=== PATIENT | female | born 1965 | race Caucasian/White ===

== ENCOUNTER → 2023-12-30 12:07 | Outpatient (REF) | payer BC, SELFPAY ==
[2023-12-30 13:33] LABS: Hematocrit 43.5 % (37.0-47.0); Hemoglobin 14.2 g/dL (12.0-16.0); Mean Corp Hgb Conc. 32.6 g/dL (33.0-37.0); Mean Corpuscular Hgb 29.4 pg (27.0-31.0); Mean Corpuscular Volume 90.1 fL (81.0-99.0); Mean Platelet Volume 9.7 fL (7.4-10.4); Platelet Count 301 10^3/uL (130-400); Red Blood Cell Count 4.83 10^6/uL (4.20-5.40); Red Cell Dist. Width 14.3 % (11.5-14.5); White Blood Cell Count 7.1 10^3/uL (4.8-10.8)
[2023-12-30 15:02] LABS: ALT (SGPT) 16 U/L (0-35); AST (SGOT) 24 U/L (14-36); Albumin 4.6 g/dl (3.5-5.0); Alkaline Phosphatase 115 U/L (38-126); Blood Urea Nitrogen 16 mg/dl (7-17); Calcium 9.2 mg/dl (8.4-10.2); Carbon Dioxide 31 mmol/L (22-30); Chloride 99 mmol/L (98-107); Glucose 93 mg/dl (70-99); HDL Cholesterol 83 mg/dl; LDL Cholesterol, Calculated 141 mg/dl; Potassium 4.2 mmol/L (3.5-5.1); Sodium 142 mmol/L (135-145); Total Bilirubin 0.7 mg/dl (0.2-1.3); Total Cholesterol 241 mg/dl (50-199); Total Protein 7.6 g/dl (6.3-8.2); Triglyceride 89 mg/dl (10-149); Very Low Density Lipoprotein 17 mg/dl (0-30); eGFR > 60.00
[2023-12-30 15:23] LABS: TSH Reflex To Free T4 1.36 uIU/ml (0.47-4.68)
== END ==
LOC: REG 12:07
PROVIDERS: ATTENDING PHYSICIAN Family Medicine
DX: Z00.00 Encounter for general adult medical examination without abnormal findings (principal); E55.9 Vitamin D deficiency, unspecified; D50.8 Other iron deficiency anemias; E78.00 Pure hypercholesterolemia, unspecified
CPT/HCPCS: 36415; 80053; 80061; 82306; 84443; 85027

== ENCOUNTER → 2024-03-25 10:45 | Outpatient (REF) | payer OTHER, SELFPAY | LOC: OHS 10:45 | PROVIDERS: ATTENDING PHYSICIAN Nurse Practitioner Adult Health | DX: S96.911A Strain of unspecified muscle and tendon at ankle and foot level, right foot, initial encounter (principal) | CPT/HCPCS: 73630 ==

== ENCOUNTER → 2025-02-02 12:55 | Outpatient (REF) | payer BC, SELFPAY | LOC: RCS 12:55 | PROVIDERS: ATTENDING PHYSICIAN Internal Medicine Cardiovascular Disease; FAMILY PHYSICIAN Family Medicine | DX: R07.89 Other chest pain (principal) | CPT/HCPCS: 93017; 93350 ==

== ENCOUNTER → 2025-02-18 12:58 | Outpatient (REF) | payer BC, SELFPAY | LOC: RCS 12:58 | PROVIDERS: ATTENDING PHYSICIAN Internal Medicine Cardiovascular Disease; FAMILY PHYSICIAN Family Medicine | DX: R07.89 Other chest pain (principal) | CPT/HCPCS: 93306 ==

== ENCOUNTER 2025-03-06 21:56 | Emergency (ER) | payer BC, SELFPAY ==
[2025-03-06 22:03] VITALS: BP 153/83
--- NOTE | 2025-03-06 23:17 | ED.SKININJ ---
HPI-Injury
<Keyana Powers MD, Resident - Last Filed: 03/07/25 00:50>
General
Chief Complaint: Skin Surface Trauma
Source: patient
Time Seen by Provider: 03/06/25 22:20
History of Present Illness-Injury
Initial Injury comments:
60-year-old female with past medical history of hypertension, varicose veins presents to the ER for bleeding from a varicose vein. Tonight while she was in bed, she started itching her right lower leg when she felt her hand get wet and noted
significant bleeding from her right lower leg. She felt like the blood was squirting 2 feet from her with every step that she took. They wrapped it tightly with a maxi pad and wound dressing and came to the ER for further evaluation. She is not
on any blood thinners. She did take ibuprofen 5 minutes after the bleeding started because she had a headache.
<Lanny Pillai MD - Last Filed: 03/06/25 23:56>
General
Exam Limitations: none
Nursing documentation reviewed up to this point in time: agreed with
Past History
<Keyana Powers MD, Resident - Last Filed: 03/07/25 00:50>
Past History
ED Past Medical History: HTN, Psychiatric and Other (varicose veins )
ED Past Surgical History: and Gynecological
<Lanny Pillai MD - Last Filed: 03/06/25 23:56>
Social History
Tobacco: Other
Alcohol: Other
Drug: None
Personal:
Living: with family
Employment: Employed
Family History
Family History: Other
Review of Systems
<Keyana Powers MD, Resident - Last Filed: 03/07/25 00:50>
Review of Systems
Allergies reviewed?: Yes
All Other Systems: ROS reviewed and negative except as documented in HPI and ROS
<Lanny Pillai MD - Last Filed: 03/06/25 23:56>
Review of Systems
Constitutional: Reports no symptoms
EENT: Reports no symptoms
Respiratory: Reports no symptoms
Cardiac: Reports no symptoms
ABD/GI: Reports no symptoms
: Reports no symptoms
Musculoskeletal: Reports no symptoms
Skin: Reports other
Neurological: Reports no symptoms
Endocrine: Reports no symptoms
Hematologic/Lymphatic: Reports no symptoms
Psychiatric: Reports no symptoms
Phy Exam
<Keyana Powers MD, Resident - Last Filed: 03/07/25 00:50>
Physical Exam
Physical Exam:
General: Well-appearing
Cardiac: Regular S1-S2, no murmurs
Respiratory: Clear breath sounds bilaterally
Extremities: No peripheral edema
Skin: Small 1 mm wound is scabbed over about 5 cm proximal to the medial malleolus
General Physical Exam
General Presentation: well appearing
General age: appears stated age
General Skin: warm and dry
General Habitus: obese
General Mental: alert
General Hydration: appears well hydrated
Course
<Keyana Powers MD, Resident - Last Filed: 03/07/25 00:50>
Vital Signs
Initial and Last Documented VS:
Initial Vital Signs
Temp Pulse Resp BP Pulse Ox
98.0 F 98 16 153/83 96
03/06/25 22:03 03/06/25 22:03 03/06/25 22:03 03/06/25 22:03 03/06/25 22:03
Last Documented Vital Signs
Temp Pulse Resp BP Pulse Ox
98.0 F 98 16 153/83 96
03/06/25 22:03 03/06/25 22:03 03/06/25 22:03 03/06/25 22:03 03/06/25 23:23
<Lanny Pillai MD - Last Filed: 03/06/25 23:56>
Vital Signs
Initial and Last Documented VS:
Initial Vital Signs
Temp Pulse Resp BP Pulse Ox
98.0 F 98 16 153/83 96
03/06/25 22:03 03/06/25 22:03 03/06/25 22:03 03/06/25 22:03 03/06/25 22:03
Last Documented Vital Signs
Temp Pulse Resp BP Pulse Ox
98.0 F 98 16 153/83 96
03/06/25 22:03 03/06/25 22:03 03/06/25 22:03 03/06/25 22:03 03/06/25 23:23
<Keyana Powers MD, Resident - Last Filed: 03/07/25 00:50>
MDM/Problems Addressed
MDM/Problems Addressed:
Small scabbed over wound noted 5 cm proximal to the medial malleolus on the right lower extremity. Use Dermabond to fully seal the wound as patient was worried it would reopen and start bleeding again. Recommend follow-up with wound center if
further treatment for varicose veins desired.
<Lanny Pillai MD - Last Filed: 03/06/25 23:56>
MDM/Problems Addressed
Differential Diagnosis Includes:
Skin abrasion, skin laceration, bleeding from superficial varicose vein
Chronic conditions affecting care:
Chronic varicose veins of legs
Acute Exacerbation and/or Progression of Chronic Illness:
Patient has acute bleeding from chronic varicose vein
<Keyana Powers MD, Resident - Last Filed: 03/07/25 00:50>
*Pulse Oximetry
SaO2: 96
Data Reviewed
Review of Other/Old Records Reveals: Labs (Prior hemoglobin is 12/30/2023 14.2) and Radiology Studies (Stress echo 04/15/23 revealed no evidence of ischemia)
<Lanny Pillai MD - Last Filed: 03/06/25 23:56>
*Pulse Oximetry
Oxygen Mode of Delivery: Room air
Patient hypoxic: no
*[employer] Interpretation
Rate: [employer]- N/A
*Critical Care Note
Total Time (30-74mins, 75-104mins- exclusive of procedures): Not Applicable
Data Reviewed
Source: patient and spouse
<Lanny Pillai MD - Last Filed: 03/06/25 23:56>
Patient Management
Social determinants of health affecting care: Living situation and Strong social support
ED Attending Note
<Keyana Powers MD, Resident - Last Filed: 03/07/25 00:50>
-
Portions of this chart may have been created with voice recognition software.� Occasional wrong word or��sound alike� substitutions may have occurred due to the inherent limitations of voice recognition software.
<Lanny Pillai MD - Last Filed: 03/06/25 23:56>
ED Attending Note
Patient seen and examined by attending physician: Yes
I performed a history and physical exam of patient and discussed management with resident, I reviewed resident's note and agree with documented findings and plan of care.: Yes
ED Attending Note:
Patient appears well and comfortable. Patient has diffuse superficial varicose veins of bilateral lower extremities
Discharge Plan
Departure
Patient Disposition: Home (Routine Discharge)
Date of Disposition: 03/06/25
Time of Disposition: 23:45
Patient with high blood pressure during this ER visit?: Yes
Discharge Problem:
skin bleed, Bleeding
Instructions: Wound Care (DC)
Referrals:
Lanny Kwong, DO [Family Provider]
Activity Restrictions/Additional Instructions:
Please follow-up with vein center for any desired treatment of varicose veins.
Interventions
Interventions:
*Risk Screen - Suicide Last Done: 03/06/25 22:03
*General Assessment Last Done: 03/06/25 22:03
*Neglect/Abuse Screening Last Done: 03/06/25 22:26
*ED- Fall Risk Assessment Last Done: 03/06/25 22:03
*ED COVID-19 Vaccine History Last Done: 03/06/25 22:03
*ED Influenza Vaccine History Last Done: 03/06/25 22:03
*Nursing Disposition Last Done: 03/06/25 23:55
ED-Skin Assessment Last Done: 03/06/25 22:25
Discharge Date and Time
Discharge Date/Time: 03/06/25 23:55
Print Language: CZECH
== END 2025-03-06 23:55 | disposition home or self-care (01) ==
LOC: EMR 21:56
PROVIDERS: EMERGENCY PHYSICIAN Emergency Medicine; FAMILY PHYSICIAN Family Medicine
DX: I83.891 Varicose veins of right lower extremity with other complications (principal); I83.93 Asymptomatic varicose veins of bilateral lower extremities; I10 Essential (primary) hypertension; E66.9 Obesity, unspecified
CPT/HCPCS: 99282; 12001

== ENCOUNTER → 2025-03-08 12:28 | Outpatient (REF) | payer BC, SELFPAY | LOC: HWEVLT 12:28 | PROVIDERS: ATTENDING PHYSICIAN Radiology Diagnostic Radiology | DX: I83.891 Varicose veins of right lower extremity with other complications (principal) | CPT/HCPCS: 93971 ==